=== PATIENT | female | born 1965 | race Caucasian/White ===

== ENCOUNTER → 2023-04-23 16:06 | Outpatient (REF) | payer BC, SELFPAY ==
[2023-04-23 17:41] LABS: % Eosinophils 3.1 % (0-6); % Immature Granulocytes 0.3 % (0-0.5); % Lymphocytes 24.7 % (20.5-51.1); % Monocytes 8.7 % (1.7-9.3); % Neutrophils 62.2 % (42.2-75.2); Absolute Basophils 0.1 10^3/uL (0-0.2); Absolute Eosinophils 0.2 10^3/uL (0-0.7); Absolute Lymphocytes 1.4 10^3/uL (1.2-3.4); Absolute Monocytes 0.5 10^3/uL (0.1-0.6); Absolute Neutrophils 3.6 10^3/uL (1.4-6.5); Hematocrit 41.4 % (37.0-47.0); Hemoglobin 14.1 g/dL (12.0-16.0); Mean Corp Hgb Conc. 34.1 g/dL (33.0-37.0); Mean Corpuscular Hgb 30.3 pg (27.0-31.0); Mean Platelet Volume 9.1 fL (7.4-10.4); Nucleated Red Blood Cells % 0 %; Platelet Count 206 10^3/uL (130-400); Red Blood Cell Count 4.65 10^6/uL (4.20-5.40); Red Cell Dist. Width 12.7 % (11.5-14.5); White Blood Cell Count 5.8 10^3/uL (4.8-10.8)
[2023-04-23 18:08] LABS: Blood Urea Nitrogen 14 mg/dl (7-17); Calcium 9.1 mg/dl (8.4-10.2); Carbon Dioxide 29 mmol/L (22-30); Chloride 100 mmol/L (98-107); Glucose 99 mg/dl (70-99); Potassium 3.7 mmol/L (3.5-5.1); Sodium 134 mmol/L (135-145); eGFR > 60.00
== END ==
LOC: RCS 16:06
PROVIDERS: ATTENDING PHYSICIAN Orthopaedic Surgery
DX: Z01.818 Encounter for other preprocedural examination (principal)
CPT/HCPCS: 36415; 80048; 85025; 93005

== ENCOUNTER → 2023-09-16 10:34 | Outpatient (REF) | payer BC, SELFPAY | LOC: RCS 10:34 | PROVIDERS: ATTENDING PHYSICIAN Family Medicine Addiction Medicine | DX: I25.10 Atherosclerotic heart disease of native coronary artery without angina pectoris (principal) | CPT/HCPCS: 93017 ==